=== PATIENT | female | born 2000 | race American Indian/Alaskan Native ===

== ENCOUNTER 2021-04-27 17:12 | Inpatient (IN) | payer MEDICAID ==
[2021-04-27] MEDS ORDERED: METHYLERGONOVINE MALEATE 0.2 MG/ML VIAL IM PRN (17:26)
[2021-04-27] MEDS ORDERED: LOPERAMIDE 2 MG CAP PO PRN (17:26)
[2021-04-27] MEDS ORDERED: ePHEDrine SULFATE 50 MG/1 ML INJ IV PRN (17:26)
[2021-04-27] MEDS ORDERED: OXYTOCIN 10 UNIT/1 ML INJ IM PRN (17:26)
[2021-04-27] MEDS ORDERED: MINERAL OIL 30 ML ORAL LIQD PO PRN (17:26)
[2021-04-27] MEDS ORDERED: TERBUTALINE 1 MG/1 ML INJ SUB-Q PRN (17:26)
[2021-04-27] MEDS ORDERED: NalbUPHINE 10 MG/1 ML INJ IV PRN (17:26)
[2021-04-27] MEDS ORDERED: miSOPROStol 200 MCG TAB PR PRN (17:26)
[2021-04-27] MEDS ORDERED: CARBOPROST TROMETHAMINE 250 MCG/1 ML INJ IM PRN (17:26)
[2021-04-27] MEDS ORDERED: ACETAMINOPHEN 325 MG TAB PO PRN (17:26)
[2021-04-27] MEDS ORDERED: fentaNYL 100 MCG/2 ML INJ IV PRN (17:26)
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
[2021-04-27] MEDS ORDERED: OXYTOCIN DRIP 30 UNITS/500 ML BAG IV SCH ×2 (18:00→19:00)
[2021-04-27] MEDS ORDERED: LIDOCAINE (2%) 20 MG/1 ML VIAL 20 ML MDV INFILTRATI ONE (18:26)
[2021-04-27] MEDS: LACTATED RINGERS 1,000 ML IV SCH (19:05)
[2021-04-27 19:26] LABS: Hemoglobin 11.8 gm/dl (10.1-14.3); Mean Corpuscular HGB Conc 33 % (30-34); Mean Corpuscular Volume 86 fl (79-97); Platelet Count 149 K/mm3 (140-440); Red Blood Count 4.19 M/mm3 (3.65-5.03); Red Cell Distribution Width 15.4 % (13.2-15.2)
--- NOTE | 2021-04-28 00:20 | Event Note ---
Date: 04/28/21 SVE /-2.
[2021-04-28] MEDS: LACTATED RINGERS 1,000 ML IV SCH ×5 (00:28→16:37)
[2021-04-28] MEDS ORDERED: BUPIVACAINE/PF (0.25%) 2.5 MG/ML 10 ML VIAL INFILTRATI ONE ×2 (02:05→12:25)
[2021-04-28] MEDS ORDERED: NALOXONE 2 MG/2 ML INJ IV PRN (02:41)
--- NOTE | 2021-04-28 02:43 | Anesthesia Consultation ---
Anesthesia Consult and Med Hx Date of service: 04/28/21 - Airway Anesthetic Teeth Evaluation: Good ROM Head & Neck: Adequate Mental/Hyoid Distance: Adequate Mallampati Class: Class II Intubation Access Assessment: Probably Good - Pulmonary Exam CTA: Yes - Cardiac Exam Cardiac Exam: RRR - Pre-Operative Health Status ASA Pre-Surgery Classification: ASA2 Proposed Anesthetic Plan: Epidural - Pulmonary Hx Smoking: No Hx Asthma: No Hx Respiratory Symptoms: No SOB: No COPD: No Home Oxygen Therapy: No Hx Pneumonia: No Hx Sleep Apnea: No - Cardiovascular System Hx Hypertension: No - Central Nervous System Hx Neuromuscular Disorder: No Hx Seizures: No Hx Back Pain: No Hx Psychiatric Problems: No - Gastrointestinal Hx Gastroesophageal Reflux Disease: No - Endocrine Hx Renal Disease: No Hx End Stage Renal Disease: No Hx Liver Disease: No Hx Hypothyroidism: No Hx Hyperthyroidism: No - Hematic Hx Anemia: Yes Hx Sickle Cell Disease: No - Other Systems Hx Alcohol Use: No Hx Obesity: Yes
--- NOTE | 2021-04-28 02:45 | Progress Note ---
Labor Epidural - Labor Epidural Start Time: 02:08 Stop Time: 02:34 Performed by:: SANDHYA FINN Procedure: Patient is requesting epidural for labor pain. H&P and labs reviewed. Procedure explained, questions answered, consent obtained. Patient placed in sitting position with monitors applied. Timeout performed immediately before start of procedure. Prep/drape in usual sterile fashion. Skin localized 3 mL 1% lidocaine at L[3]-L[4] interspace. 17-gauge Touhy epidural needle advanced to MILAGROS with saline at [6] cm. No blood/CSF noted via epidural needle. Epidural catheter advanced to [10] cm. Negative aspiration for blood and CSF via catheter, negative response to test dose 3 ml 1.5% lidocaine w/ Epi. Sterile dressing applied followed by tape reinforcement. Patient tolerated procedure well. No immediate complications noted.
[2021-04-28] MEDS: ePHEDrine SULFATE 50 MG/1 ML INJ IV PRN ×2 (02:53→07:14)
[2021-04-28] MEDS: fentaNYL-BUPIV 2 MCG/ML-0.125% 200 MCG/100 ML BAG EPIDURAL SCH ×2 (03:08→10:48)
--- NOTE | 2021-04-28 06:30 | Event Note ---
Date: 04/28/21 SVE -2.
--- NOTE | 2021-04-28 09:46 | Event Note ---
Date: 04/28/21 pt evaluated earlier and pelvic /-1 with bulging bag and AROM done at 8:32am with clear fluid. Pt allowed to push 3 times and pt unable to move baby downwards. Will allow pt to labor down. FHR category I and Ctx every 2-3mins., Expect
--- NOTE | 2021-04-28 18:05 | Procedure Note ---
OB Delivery Note - Delivery Date of Delivery: 04/28/21 Surgeon: SANDY PENNY - Vaginal Delivery presentation: vertex Delivery position: OA Intrapartum events: prolonged active phase, shoulder dystocia, uterine atony Delivery induction: none Delivery augmentation: rupture of membranes, pitocin Delivery monitor: external FHT, external uterine, internal uterine Route of delivery: Delivery placenta: spontaneous Delivery cord: 3 umbilical vessels Episiotomy: none Delivery laceration: 1st degree (x2, one to right vaginal wall and right periurethral) Delivery repair: chromic Anesthesia: epidural Delivery comments: Protracted active phase at 10cm for 6hrs, then SAVD of viable female and shoulder dystocia relieved with suprapubic pressure, Ernesto maneuver, delivery of right posterior shoulder and counter clock-wolfe rotation to deliver anterior shoulder and body. NICU called for delivery and Umbilical artery gas sent with pH 7.2 and BE -4.8. APGARS 7/9; Baby moving both arms equally per peds and no crepitus felt. Bimanual massage done with uterine atony and same treated with IV pitocin and cytotec 800mcg per rectum. Pt told that she has a small hemorrhoid, non-thrombosed. Mom and baby doing well - Infant A at 1 minute: 7 at 5 minutes: 9 Infant Gender: Female (wt 4020g; clear amniotic fluid during labor then large meconium seen after baby delivered)
[2021-04-28] MEDS ORDERED: PROMETHAZINE 25 MG TAB PO PRN (22:37)
[2021-04-28] MEDS ORDERED: WITCH HAZEL/ GLYCERIN PAD TP PRN (22:37)
[2021-04-28] MEDS ORDERED: PROMETHAZINE 25 MG RECT SUPP PR PRN (22:37)
[2021-04-28] MEDS ORDERED: MAGNESIUM HYDROXIDE (MOM) ORAL LIQD UDC PO PRN (22:37)
[2021-04-28] MEDS ORDERED: LANOLIN/ZINC/DIMETHICONE (LANSINOH) 7 GM TP PRN (22:37)
[2021-04-28] MEDS ORDERED: diphenhydrAMINE 25 MG CAP PO PRN (22:37)
[2021-04-28] MEDS ORDERED: oxyCODONE /ACETAMINOPHEN 5-325MG TAB PO PRN (22:37)
[2021-04-28] MEDS ORDERED: ONDANSETRON 4 MG/2 ML INJ IV PRN (22:37)
[2021-04-29] MEDS: IBUPROFEN 600 MG TAB PO SCH ×5 (00:15→23:41)
[2021-04-29 06:46] LABS: Hematocrit 32.9 % (30.3-42.9); Hemoglobin 10.6 gm/dl (10.1-14.3)
[2021-04-29] MEDS ORDERED: PRENATAL VIT27-FE FUMARATE-FOLIC ACID VIT TAB PO SCH (10:00)
--- NOTE | 2021-04-29 10:08 | Progress Note ---
Assessment and Plan A: day 1 S/P . Anemia. P: Supplement with iron. Anticipate discharge home tomorrow if patient continues to do well. Subjective - Subjective Date of service: 04/29/21 Principal diagnosis: day 1 S/P vaginal Patient reports: appetite normal, voiding normally, pain well controlled, flatus, ambulating normally, no dizzy ambulation, no nauseated [place]: doing well Objective - Vital Signs Latest vital signs: Vital Signs Temp Pulse Resp BP BP Pulse Ox Pulse Ox 04/29/21 09:03 98.4 F 78 18 102/53 97 04/29/21 05:36 97.7 F 78 20 101/61 96 04/28/21 21:35 97.8 F 83 22 119/65 99 99 04/28/21 19:50 37 L 94 04/28/21 19:49 68 122/61 04/28/21 19:48 82 99 04/28/21 19:44 73 129/72 04/28/21 19:43 88 98 04/28/21 19:39 73 139/69 04/28/21 19:38 81 84 04/28/21 19:34 67 123/62 04/28/21 19:33 71 99 04/28/21 19:29 78 137/70 04/28/21 19:28 73 99 04/28/21 19:24 82 129/63 04/28/21 19:23 95 H 97 04/28/21 19:20 75 137/61 04/28/21 19:18 80 99 04/28/21 19:14 82 142/70 04/28/21 19:13 63 100 04/28/21 19:10 77 122/56 04/28/21 19:09 70 90 04/28/21 19:08 86 97 04/28/21 19:04 71 128/74 04/28/21 19:03 76 96 04/28/21 18:59 69 118/72 04/28/21 18:58 72 99 04/28/21 18:54 67 129/79 04/28/21 18:53 69 98 04/28/21 18:49 72 127/77 04/28/21 18:48 72 91 04/28/21 18:45 78 93 04/28/21 18:44 82 126/68 04/28/21 18:43 81 99 04/28/21 18:39 78 127/70 04/28/21 18:38 84 99 04/28/21 18:35 79 92 04/28/21 18:34 72 125/88 04/28/21 18:33 76 98 04/28/21 18:28 80 99 04/28/21 18:24 176 H 121/74 04/28/21 18:23 86 99 04/28/21 18:19 93 H 122/75 04/28/21 18:18 83 100 04/28/21 18:15 88 120/80 93 04/28/21 18:13 85 100 04/28/21 18:08 79 100 04/28/21 18:04 80 117/70 04/28/21 18:03 85 91 04/28/21 18:02 99.2 F 90 92 04/28/21 17:59 87 113/68 04/28/21 17:58 94 H 99 04/28/21 17:54 96 H 117/70 04/28/21 17:53 92 H 98 04/28/21 17:50 92 H 112/64 92 04/28/21 17:48 97 H 100 04/28/21 17:43 95 H 100 04/28/21 17:38 101 H 100 04/28/21 17:32 140 H 91 04/28/21 17:28 131 H 100 04/28/21 17:23 104 H 100 04/28/21 17:18 84 100 04/28/21 17:13 96 H 100 04/28/21 17:08 83 100 04/28/21 17:02 89 100 04/28/21 17:01 110 H 125/58 04/28/21 16:58 100 H 99 04/28/21 16:53 101 H 100 04/28/21 16:48 116 H 98 04/28/21 16:46 95 H 140/69 04/28/21 16:43 102 H 99 04/28/21 16:38 84 99 04/28/21 16:33 59 L 78 L 04/28/21 16:31 85 114/56 04/28/21 16:28 88 91 04/28/21 16:23 113 H 96 04/28/21 16:22 83 87 04/28/21 16:18 120 H 99 04/28/21 16:17 120 H 106/55 04/28/21 16:16 69 81 L 04/28/21 16:13 91 H 98 04/28/21 16:08 145 H 100 04/28/21 16:07 98 H 84 04/28/21 16:02 100 H 99 04/28/21 16:01 109 H 110/58 04/28/21 15:58 116 H 100 04/28/21 15:52 125 H 100 04/28/21 15:48 119 H 98 04/28/21 15:47 110 H 107/70 93 04/28/21 15:42 113 H 97 04/28/21 15:37 104 H 97 04/28/21 15:33 111 H 98 04/28/21 15:32 113 H 104/49 91 04/28/21 15:27 115 H 96 04/28/21 15:23 127 H 94 04/28/21 15:22 131 H 95 04/28/21 15:18 71 92 04/28/21 15:17 73 92 04/28/21 15:16 113 H 108/53 04/28/21 15:12 111 H 97 04/28/21 15:07 108 H 99 04/28/21 15:02 104 H 96 04/28/21 15:01 104 H 98/53 94 04/28/21 14:57 103 H 97 04/28/21 14:52 98 H 94 04/28/21 14:50 104 H 94 04/28/21 14:47 100 H 95 04/28/21 14:45 102 H 103/59 94 04/28/21 14:42 100 H 96 04/28/21 14:40 104 H 94 04/28/21 14:37 112 H 97 04/28/21 14:32 101 H 95 04/28/21 14:30 97 H 91/52 04/28/21 14:28 103 H 94 04/28/21 14:27 100 H 95 04/28/21 14:22 104 H 96 04/28/21 14:18 90 100/59 04/28/21 14:17 93 H 97 04/28/21 14:12 107 H 98 04/28/21 14:07 120 H 94 04/28/21 14:02 94 H 93 04/28/21 14:00 98.4 F 115 H 85/46 01/29/22 13:58 90 94 04/28/21 13:56 97 H 94 04/28/21 13:52 93 H 94 04/28/21 13:49 96 H 94 04/28/21 13:47 99.9 F H 89 94 04/28/21 13:44 91 H 90 04/28/21 13:42 85 96 04/28/21 13:41 91 H 92/56 04/28/21 13:40 100 H 89/55 04/28/21 13:39 111 H 94 04/28/21 13:37 101 H 92 04/28/21 13:32 100 H 94 04/28/21 13:31 101 H 87/53 04/28/21 13:28 100 H 94 04/28/21 13:27 102 H 94 04/28/21 13:23 108 H 93 04/28/21 13:22 99 H 95 04/28/21 13:18 104 H 97 04/28/21 13:16 99 H 99/54 04/28/21 13:12 104 H 95 04/28/21 13:07 101 H 96 04/28/21 13:06 108 H 94 04/28/21 13:02 101 H 96 04/28/21 13:01 98 H 107/61 04/28/21 12:59 108 H 94 04/28/21 12:57 100 H 97 04/28/21 12:52 96 H 96 04/28/21 12:47 103 H 104/62 100 04/28/21 12:43 98 H 98 04/28/21 12:37 96 H 100 04/28/21 12:32 104 H 97 04/28/21 12:31 111 H 114/70 04/28/21 12:27 115 H 98 04/28/21 12:22 108 H 98 04/28/21 12:17 111 H 127/73 99 04/28/21 12:12 115 H 99 04/28/21 12:08 109 H 99 04/28/21 12:03 110 H 99 04/28/21 12:01 110 H 124/72 04/28/21 11:57 117 H 97 04/28/21 11:52 120 H 97 04/28/21 11:47 109 H 112/72 99 04/28/21 11:42 110 H 99 04/28/21 11:40 99.8 F H 110 H 04/28/21 11:38 110 H 97 04/28/21 11:32 94 H 96 04/28/21 11:30 101 H 109/56 04/28/21 11:28 99 H 94 04/28/21 11:27 95 H 97 04/28/21 11:23 97 H 97 04/28/21 11:18 109 H 97 04/28/21 11:15 100 H 117/64 04/28/21 11:12 100 H 98 04/28/21 11:07 90 98 04/28/21 11:02 98 H 96 04/28/21 11:01 84 99/60 04/28/21 10:57 104 H 98 04/28/21 10:52 89 100 04/28/21 10:48 89 100 04/28/21 10:46 85 94/61 04/28/21 10:42 89 99 04/28/21 10:37 95 H 98 04/28/21 10:32 82 99 04/28/21 10:31 88 93/56 04/28/21 10:27 87 98 04/28/21 10:22 92 H 99 04/28/21 10:17 88 99 04/28/21 10:15 87 98/57 04/28/21 10:12 105 H 97 04/28/21 10:07 88 98 Intake and Output 04/28/21 04/29/21 04/29/21 23:59 07:59 15:59 Intake Total 777.083 480 Output Total 400 1000 Balance 377.083 -520 Intake: IV 777.083 Lactated Ringers 1,000 ml 777.083 @ 125 mls/hr IV DIRECT [facility] Rx#:[id number] Intake, Free Water 480 Output: Urine 400 1000 Void 400 1000 Other: Total, Output Amount 400 500 # Voids Void 1 1 Estimated Blood Loss 250 - Exam Cardiovascular: Present: Regular rate Lungs: Present: Clear to auscultation Abdomen: Present: normal appearance, soft, normal bowel sounds. Absent: distention, tenderness, guarding, rigidity Uterus: Present: normal, firm, fundal height below umbilicus (fundus firm and midline at 1 FB above umbilicus). Absent: bogginess, tenderness Extremities: Absent: tenderness - Labs Labs: Abnormal lab results 04/28/21 Range/Units 17:55 ABG pH 7.201 L (7.320-7.450) POC ABG pCO2 63.9 H (32.0-48.0) mmHg POC ABG pO2 14.0 L (83-108) mmHg ABG Oxyhemoglobin 22.8 L (94-98) ABG Methemoglobin 1.6 H (0.0-1.5) Carboxyhemoglobin 0.4 L (0.5-1.5)
[2021-04-29] MEDS: FERROUS SULFATE 325 MG TAB PO SCH ×2 (17:00→22:15)
--- NOTE | 2021-04-29 20:09 | Post Anesthesia Evaluation ---
- Post Anesthesia Evaluation Patient Participated: Yes Airway Patent: Yes Stable Respiratory Function: Yes Nausea/Vomiting: No Temp > 96.8F: Yes Pain Manageable: Yes Adequeate Hydration: Yes Anesthesia Complications: No Block Receding Appropriately: Yes Patient on Ventilator: No
[2021-04-30] MEDS: IBUPROFEN 600 MG TAB PO SCH (05:21)
--- NOTE | 2021-04-30 06:57 | Progress Note ---
Assessment and Plan A: day 2 S/P . Anemia. P: Discharge patient home today. Discussed with patient discharge instructions and warning signs. Advised patient to continue to take her vitamin and iron supplements at home. Advised patient to avoid intercourse, lifting, housework. Advised patient to follow up at [facility] office in 2 weeks. Patient voiced understanding of all instructions. Subjective - Subjective Date of service: 04/30/21 Principal diagnosis: day 1 S/P vaginal Interval history: [place] is doing well. Desires discharge home today. Patient reports: appetite normal, voiding normally, pain well controlled, flatus, ambulating normally, no dizzy ambulation, no nauseated [place]: doing well, bottle feeding Objective - Vital Signs Latest vital signs: Vital Signs Temp Pulse Resp BP Pulse Ox Pulse Ox 04/30/21 05:20 98 04/30/21 03:15 98 04/30/21 01:35 97 04/30/21 00:20 97.5 F L 54 L 20 97/60 97 04/29/21 23:40 97 04/29/21 22:13 97 04/29/21 20:10 98 04/29/21 16:55 97.3 F L 65 18 96/60 98 04/29/21 12:42 97.5 F L 73 18 93/49 98 04/29/21 09:03 98.4 F 78 18 102/53 97 04/29/21 08:00 98 Intake and Output 04/29/21 04/29/21 04/30/21 15:59 23:59 07:59 Intake Total 240 240 Balance 240 240 Intake: Oral 240 240 Other: Total, Intake Amount 240 120 # Voids Void 1 1 - Exam Cardiovascular: Present: Regular rate, No murmurs Lungs: Present: Clear to auscultation Abdomen: Present: normal appearance, soft. Absent: distention, tenderness, guarding, rigidity Uterus: Present: normal, firm, fundal height below umbilicus (fundus firm and midline at 1 FB below umbilicus). Absent: bogginess, tenderness Extremities: Present: normal. Absent: tenderness, edema
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
[2021-04-30 08:13] VITALS: BP 94/51
== END 2021-04-30 10:05 | disposition home or self-care (01) | DRG 775 ==
LOC: LD 17:12 → OB 04-28 22:22
PROVIDERS: ADMIT Obstetrics & Gynecology; ATTEND Obstetrics & Gynecology
PROC: 10E0XZZ Delivery of Products of Conception, External Approach (ICD-10-PCS; principal; 2021-04-28)
PROC: 0HQ9XZZ Repair Perineum Skin, External Approach (ICD-10-PCS; 2021-04-28)
PROC: 3E0R3BZ Introduction of Anesthetic Agent into Spinal Canal, Percutaneous Approach (ICD-10-PCS; 2021-04-28)
PROC: 00HU33Z Insertion of Infusion Device into Spinal Canal, Percutaneous Approach (ICD-10-PCS; 2021-04-28)
DX: O66.0 Obstructed labor due to shoulder dystocia (principal); O99.214 Obesity complicating childbirth; O70.0 First degree perineal laceration during delivery; O62.2 Other uterine inertia; O99.02 Anemia complicating childbirth; Z20.822 Contact with and (suspected) exposure to COVID-19; O63.9 Long labor, unspecified; Z83.3 Family history of diabetes mellitus; Z82.3 Family history of stroke; Z3A.41 41 weeks gestation of pregnancy; Z37.0 Single live birth
CPT/HCPCS: 36415; 82805; 85014; 85018; 85027; 86592; 86850; 86900; 86901; 87591; 96374; G0378; J3490; J0690; J2590; J3010; J7120; U0003